=== PATIENT | female | born 1995 | race Caucasian/White ===

== ENCOUNTER 2017-07-09 16:01 | Emergency (ER) | payer OTHER ==
--- NOTE | 2017-07-09 17:21 | CT ---
CT HEAD WITHOUT IV CONTRAST 07/09/17 HISTORY: Patient slipped in bathtub last night and hit left frontal portion of the head. Patient complains of dizziness and nausea today. Tingling in extremities. COMPARISON: None available. FINDINGS: There is no evidence of a hemorrhage, acute infarction, mass effect or midline shift. Ventricular sy stem is normal in size, shape, and position. The visualized paranasal sinuses and mastoid air cells are clear. No calvarial fracture is seen. IMPRESSION: No acute intracranial abnormalities demonstrated. POS: VEE
== END 2017-07-09 17:32 | disposition home or self-care (01) ==
LOC: SCSER 16:01
DX: S00.03XA Contusion of scalp, initial encounter (principal); W01.10XA Fall on same level from slipping, tripping and stumbling with subsequent striking against unspecified object, initial encounter
CPT/HCPCS: 70450

== ENCOUNTER 2019-07-06 15:42 | Emergency (ER) | payer OTHER ==
[2019-07-06 17:19] LABS: #Basophils 0.1 thou/uL (0.0-0.2); #Eosinphils 0.1 thou/uL (0.0-0.7); #Lymphocytes 2.6 thou/uL (1.20-3.40); #Monocytes 0.6 thou/uL (0.11-0.59); #Neutrophils 3.3 thou/uL (1.40-6.50); %Basophils 1.1 % (0.0-1.0); %Eosinophils 1.6 % (0.0-10.0); %Lymphocytes 39.3 % (21.0-51.0); %Monocytes 8.3 % (0.0-10.0); %Neutrophils 49.7 % (42.0-75.0); Hemoglobin 14.4 g/dL (12.0-16.0); Mean Corpuscular Hemoglobin 30.7 pg (27.0-31.0); Mean Corpuscular Volume 90.3 fL (78.0-98.0); Platelet Count 341 thou/uL (130-400); RBC Distribution Width 11.6 % (11.5-14.5); Red Blood Cell (RBC) Count 4.67 mill/uL (4.20-5.40); White Blood Cell (WBC) Count 6.7 thou/uL (4.8-10.8)
[2019-07-06 17:41] LABS: ALT (SGPT) 11 U/L (8-55); AST (SGOT) 16 U/L (5-34); Albumin 4.9 g/dL (3.5-5.0); Alkaline Phosphatase 58 U/L (40-110); Anion Gap 11 mmol/L (10-20); BUN (Urea Nitrogen) 14 mg/dL (7.0-18.7); Bilirubin, Total 1.6 mg/dL (0.2-1.2); Calc. Creatinine Clearance 0 mL/min (70-130); Calcium 9.9 mg/dL (7.8-10.44); Carbon Dioxide 26 mmol/L (22-29); Chloride 103 mmol/L (98-107); Estimated GFR-MDRD 87; Globulin 2.8 g/dL (2.4-3.5); Glucose 69 mg/dL (70-105); Potassium 3.2 mmol/L (3.5-5.1); Protein, Total 7.7 g/dL (6.0-8.3); Sodium 137 mmol/L (136-145)
[2019-07-06 17:49] LABS: Acetaminophen Less than 6.0 mcg/mL (10.0-30.0); Alcohol Less than 10 mg/dL (Less than 10); CK (CPK) 64 U/L (29-168); Salicylate Less than 8.0 mg/dL (15.0-30.0)
[2019-07-06 18:20] LABS: Bilirubin Negative (Negative); Blood, Urine Negative (Negative); Clarity Clear (Clear); Glucose, Urine (Dipstick) Normal (Negative); Leukocyte Negative Leu/uL (Negative); Nitrite Negative (Negative); Protein, Urine (Dipstick) Negative (Neg-Trace)
[2019-07-06 18:24] LABS: Pregnancy Test - Urine (BHCG) Negative (Negative); Pregu Control Background? CLEAR/WHITE (CLR/WHITE); Pregu Control Bar Appear? YES (CONTROL BAR); Specific Gravity 1.008 (1.002-1.036)
[2019-07-06 18:32] LABS: Medtox Reader # READER 4
[2019-07-06 18:33] LABS: Amphetamine Detected (NotDetected); Barbiturates Screen Not Detected (NotDetected); Benzodiazepine Screen Detected (NotDetected); Cocaine Metabolite Screen Detected (NotDetected); Medtox Control Line Valid? VALID (VALID); Methadone Not Detected (NotDetected); Methamphetamine Detected (NotDetected); Opiate Screen Not Detected (NotDetected); Oxycodone Screen Not Detected (NotDetected); Phencyclidine (PCP) Not Detected (NotDetected); THC/Cannabinoid Screen Detected (NotDetected); Tricyclic Screen Not Detected (NotDetected)
--- NOTE | 2019-07-10 02:34 | EKG ---
Test Reason : Blood Pressure : / mmHG Vent. Rate : 088 BPM Atrial Rate : 088 BPM P-R Int : 124 ms QRS Dur : 084 ms QT Int : 350 ms P-R-T Axes : 070 043 014 degrees QTc Int : 423 ms Normal sinus rhythm with sinus arrhythmia Possible Left atrial enlargement Borderline ECG Confirmed by GALE DAVILA, RYAN Beth ([id number]), deputy editor in chief JAMEY LANDEROS ([id number]) on 07/10/2019 2:34:05 AM Referred By: Confirmed By:RYAN BEASLEY MD
== END 2019-07-06 19:30 | disposition home or self-care (01) ==
LOC: ERS 15:42
DX: F12.10 Cannabis abuse, uncomplicated (principal); F14.10 Cocaine abuse, uncomplicated; F15.10 Other stimulant abuse, uncomplicated; F41.9 Anxiety disorder, unspecified; F32.9 Major depressive disorder, single episode, unspecified; Z79.899 Other long term (current) drug therapy
CPT/HCPCS: 36415; 80053; 80306; 80307; 81003; 81025; 82550; 84443; 85025; 93005

== ENCOUNTER 2019-07-15 16:19 | Emergency (ER) | payer OTHER ==
[2019-07-15 16:49] LABS: Bilirubin Negative (Negative); Blood, Urine Negative (Negative); Clarity Clear (Clear); Glucose, Urine (Dipstick) Normal (Negative); Leukocyte Negative Leu/uL (Negative); Nitrite Negative (Negative); Protein, Urine (Dipstick) Negative (Neg-Trace); Urobilinogen Normal mg/dL (Less than 2)
[2019-07-15 16:52] LABS: Pregnancy Test - Urine (BHCG) Negative (Negative); Pregu Control Background? CLEAR/WHITE (CLR/WHITE); Pregu Control Bar Appear? YES (CONTROL BAR); Specific Gravity 1.004 (1.002-1.036)
[2019-07-15 18:05] LABS: #Basophils 0.1 thou/uL (0.0-0.2); #Eosinphils 0.1 thou/uL (0.0-0.7); #Lymphocytes 2.2 thou/uL (1.20-3.40); #Monocytes 0.4 thou/uL (0.11-0.59); #Neutrophils 3.5 thou/uL (1.40-6.50); %Basophils 1.5 % (0.0-1.0); %Eosinophils 1.6 % (0.0-10.0); %Lymphocytes 34.8 % (21.0-51.0); %Monocytes 6.9 % (0.0-10.0); %Neutrophils 55.2 % (42.0-75.0); Hemoglobin 13.2 g/dL (12.0-16.0); Mean Corpuscular HGB CONC 33.9 g/dL (32.0-36.0); Mean Corpuscular Hemoglobin 30.8 pg (27.0-31.0); Mean Corpuscular Volume 90.8 fL (78.0-98.0); Mean Platelet Volume 8.2 fL (7.4-10.4); Platelet Count 277 thou/uL (130-400); RBC Distribution Width 11.3 % (11.5-14.5); Red Blood Cell (RBC) Count 4.27 mill/uL (4.20-5.40); White Blood Cell (WBC) Count 6.3 thou/uL (4.8-10.8)
[2019-07-15 18:11] LABS: PTT 25.9 SEC (22.9-36.1); Prothrombin Time 13.1 SEC (12.0-14.7)
--- NOTE | 2019-07-15 18:19 | CT ---
CT ABDOMEN WITH CONTRAST CT PELVIS WITH CONTRAST: DATE: 07/15/2019 HISTORY: 23-year-old female with abdominal pain and bloody stools. COMPARISON: None available TECHNIQUE: IV injection of iodinated contrast media: administered. Oral contrast media:Not administered. FINDINGS: Lack of visceral fat, typical for this age group, makes it difficult to evaluate pancreas and bowel. No pancreatic ductal dilation. Transverse colon is very redundant, extending inferiorly to the pelvic inlet. Moderate to large amount of colonic stool. No pneumoperitoneum. No moderate or large am ounts of free fluid in the pelvic cavity. Abdominal aorta, appendix, kidneys, adrenals, liver, urinary bladder, and spleen, are normal. Lung ba ses are clear. IMPRESSION: 1) no definite acute findings. 2) redundant transverse colon. 3) moderate to large volume of colonic stool.
[2019-07-15 18:25] LABS: ALT (SGPT) 11 U/L (8-55); AST (SGOT) 17 U/L (5-34); Albumin 4.5 g/dL (3.5-5.0); Alkaline Phosphatase 48 U/L (40-110); Anion Gap 12 mmol/L (10-20); BUN (Urea Nitrogen) 9 mg/dL (7.0-18.7); Bilirubin, Total 0.6 mg/dL (0.2-1.2); Calc. Creatinine Clearance 0 mL/min (70-130); Calcium 9.2 mg/dL (7.8-10.44); Carbon Dioxide 25 mmol/L (22-29); Chloride 104 mmol/L (98-107); Estimated GFR-MDRD Greater than 90; Globulin 2.4 g/dL (2.4-3.5); Glucose 84 mg/dL (70-105); Protein, Total 6.9 g/dL (6.0-8.3); Sodium 137 mmol/L (136-145)
== END 2019-07-15 19:09 | disposition home or self-care (01) ==
LOC: ERS 16:19
DX: K59.00 Constipation, unspecified (principal); F41.9 Anxiety disorder, unspecified; F32.9 Major depressive disorder, single episode, unspecified; Z79.899 Other long term (current) drug therapy
CPT/HCPCS: 74177; 80053; 81003; 81025; 82274; 85025; 85610; 85730; 86850; 86900; 86901

== ENCOUNTER → 2019-11-18 | Day surgery (SDC) | payer OTHER ==
--- NOTE | 2019-11-18 14:10 | ULT ---
LIMITED BILATERAL BREAST ULTRASOUND: Date: 11/18/2019 PROVIDED CLINICAL HISTORY: Bilateral breast masses, one of which was previously biopsied and shown to represent fibroadenoma. FINDINGS: Comparison images are reportedly not available. RIGHT: At the 9 o'clock position of the right breast is a 4.1 x 2.8 x 1.3 cm circumscribed, wider than tall, gently lobulated hypoechoic mass without posterior shadowing. Immediately adjacent to this mass at 9 o'clock is a 1.3 cm hypoechoic, wider than tall, smoothly tray inated mass without posterior shadowing. At the 3 o'clock position of the right breast is a circumscribed oval, hypoechoic mass measuring less than 1.0 cm, demonstrating smooth margins and no posterior shadowing. LEFT: At the 3 o'clock position of the left breast is a 1.4 cm circumscribed, wider than tall, hypoechoic m ass demonstrating smooth margins and no posterior shadowing. IMPRESSION: Bilateral circumscribed hypoechoic masses compatible with fibroadenomas. The patient reports that one of these is symptomatic. Surgical consultation is recommended. POS: OFF
== END ==
LOC: BICULT 12:30
PROVIDERS: ATTEND Family Medicine
DX: D24.9 Benign neoplasm of unspecified breast (principal); N63.10 Unspecified lump in the right breast, unspecified quadrant; N63.20 Unspecified lump in the left breast, unspecified quadrant

== ENCOUNTER 2019-12-05 08:08 | Day surgery (SDC) | payer OTHER ==
--- NOTE | 2019-12-02 10:00 | HP ---
HISTORY OF PRESENT ILLNESS: A 23-year-old female with bilateral fibroadenomas, lateral right and left breast, right breast larger. She has had these for 3 years. Recent ultrasound suggests that they are benign, but the right one has become bothersome to her and she wants it to be removed. The plan is to remove the right lateral breast mass through a periareolar lateral incision outpatient. She understands risks, benefits, and consents. FAMILY HISTORY: Negative for breast cancer. 0, para 0. She is a [employer] major graduating in August 2020. ALLERGIES: NONE. TOBACCO: None. ALCOHOL: Rarely. MEDICATIONS: None. PAST SURGICAL HISTORY: Noncontributory. PAST MEDICAL HISTORY: Noncontributory. PHYSICAL EXAMINATION: VITAL SIGNS: Weight 168 pounds, height 72 inches, blood pressure 115/76, heart rate 68, temperature 98.2 degrees. HEAD, EARS, EYES, NOSE, AND THROAT: Unremarkable. LUNGS: Clear to auscultation. CARDIAC: Regular rhythm without murmur or gallop. ABDOMEN: Soft and nontender. EXTREMITIES: Unremarkable. Axilla without masses. BREASTS: Right lateral breast mass 3.5 to 4 cm mass, lateral 9 o'clock radian, 2 to 3 cm from the areolar border. Left breast mass 3 cm mobile, 9 o'clock radian, 3 to 4 cm from the areolar border. ASSESSMENT: Painful right breast mass. The other mass has been stable. PLAN: Excisional biopsy. She understands risks and benefits. Job ID: [id number]
[2019-12-02 12:42] VITALS: BMI 22.1
[2019-12-05] MEDS ORDERED: Ketorolac Tromethamine 30 MG/ML VIAL ONE ×2 (08:35→11:21)
[2019-12-05] MEDS ORDERED: Acetaminophen 500 MG TAB ONE (08:35)
[2019-12-05] MEDS ORDERED: Scopolamine 1.5 mg/72 hour Patch ONE (08:35)
[2019-12-05 09:20] LABS: BHCG - Serum Negative (NEGATIVE); Pregs Control Background? CLEAR/WHITE (CLR/WHITE); Pregs Control Bar Appear? YES (CONTROL BAR)
[2019-12-05] MEDS ORDERED: Lidocaine 1% w/Epinephrine 1:100K 20 ML VIAL ONE (10:21)
[2019-12-05] MEDS ORDERED: Bupivacaine 0.25% HCL 30 ML VIAL ONE (10:21)
[2019-12-05] MEDS ORDERED: Lidocaine 1% PF 5 ML VIAL ONE (11:21)
[2019-12-05] MEDS ORDERED: Ondansetron PF 4 MG/2 ML Vial ONE (11:21)
[2019-12-05] MEDS ORDERED: Dexamethasone 20 MG/5 ML VIAL ONE (11:21)
[2019-12-05] MEDS ORDERED: PROPOFOL 200 MG/20 ML VIAL ONE (11:21)
[2019-12-05] MEDS ORDERED: Midazolam HCl 2 mg/2 ml Vial ONE (12:40)
[2019-12-05] MEDS ORDERED: Fentanyl 100 MCG/2 ML VIAL ONE (12:40)
[2019-12-05] MEDS ORDERED: HYDROmorphone 2 MG/ML VIAL ONE (12:41)
--- NOTE | 2019-12-05 14:06 | OP ---
DATE OF PROCEDURE: 12/05/2019 PREOPERATIVE DIAGNOSES: 1. Painful right lateral breast mass. 2. Probable fibroadenoma. POSTOPERATIVE DIAGNOSES: 1. Painful right lateral breast mass. 2. Probable fibroadenoma. PROCEDURE PERFORMED: Excisional biopsy of right breast mass, lateral, 9 o'clock Radian. ANESTHESIA: General, local with 0.5% Marcaine 30 mL mixed with 1% Xylocaine with epinephrine 20 mL. DESCRIPTION OF PROCEDURE: The patient was taken to the operating room where under general anesthesia, right breast was prepared with ChloraPrep and draped in routine fashion local anesthetic was infiltrated in the skin and subcutaneous tissue about the operative site. Right lateral periareolar skin incision was made, carried down to skin and subcutaneous tissue, underlying breast mass excised, submitted to Pathology. Hemostasis was gained with cautery. Subcutaneous tissue was approximated with 3-0 Monocryl, skin with subdermal 4-0 Monocryl, and Remlap glue applied after local anesthetic infiltrated in the biopsy cavity for postoperative pain control. Job ID: [id number]
== END 2019-12-05 14:55 | disposition home or self-care (01) ==
LOC: SDC 08:08
PROVIDERS: ATTEND Specialist
PROC: 0HBT0ZX Excision of Right Breast, Open Approach, Diagnostic (ICD-10-PCS; principal; 2019-12-05)
DX: D24.1 Benign neoplasm of right breast (principal)
CPT/HCPCS: 84703; 88305; J1100; J1170; J1885; J2001; J2250; J2405; J2704; J3010; S0020

== ENCOUNTER 2021-02-28 23:45 | Inpatient (IN) | payer OTHER ==
[2021-03-01] MEDS ORDERED: Ondansetron PF 4 MG/2 ML Vial ONE (00:20)
[2021-03-01 00:33] LABS: BHCG - Serum Negative (NEGATIVE); Pregs Control Background? CLEAR/WHITE (CLR/WHITE); Pregs Control Bar Appear? YES (CONTROL BAR)
[2021-03-01 00:37] LABS: Hemoglobin 14.7 g/dL (12.0-16.0); Mean Corpuscular HGB CONC 34.7 g/dL (32.0-36.0); Mean Corpuscular Hemoglobin 31.1 pg (27.0-31.0); Mean Corpuscular Volume 89.7 fL (78.0-98.0); Mean Platelet Volume 8.2 fL (7.4-10.4); Platelet Count 294 thou/uL (130-400); RBC Distribution Width 11.3 % (11.5-14.5); Red Blood Cell (RBC) Count 4.72 mill/uL (4.20-5.40); White Blood Cell (WBC) Count 14.4 thou/uL (4.8-10.8)
[2021-03-01 00:39] LABS: ALT (SGPT) 15 U/L (8-55); AST (SGOT) 16 U/L (5-34); Albumin 4.6 g/dL (3.5-5.0); Alkaline Phosphatase 68 U/L (40-110); Anion Gap 20 mmol/L (10-20); BUN (Urea Nitrogen) 7 mg/dL (7.0-18.7); Bilirubin, Total 0.7 mg/dL (0.2-1.2); Calc. Creatinine Clearance 0 mL/min (70-130); Calcium 9.5 mg/dL (7.8-10.44); Carbon Dioxide 15 mmol/L (22-29); Chloride 106 mmol/L (98-107); Globulin 2.8 g/dL (2.4-3.5); Glucose 161 mg/dL (70-105); Lipase 14 U/L (8-78); Potassium 3.6 mmol/L (3.5-5.1); Protein, Total 7.4 g/dL (6.0-8.3); Sodium 137 mmol/L (136-145)
[2021-03-01 00:56] LABS: Band 19 % (5-11); Lymphocytes 8 % (21-51); MDiff Complete? YES; Monocytes 1 % (0-10); Neutrophil 72 % (42-75)
[2021-03-01] MEDS ORDERED: Morphine 4 MG/ML VIAL ONE (01:37)
[2021-03-01] MEDS ORDERED: metroNIDAZOLE 500 MG/100 ML BAG ONE (01:37)
[2021-03-01 02:55] VITALS: BMI 24.9
[2021-03-01] MEDS ORDERED: diphenhydrAMINE 50 MG CAP PO SCH (03:00)
[2021-03-01] MEDS: Sodium Chloride 0.9% 1,000 ML IV SCH ×2 (03:16→12:10)
[2021-03-01] MEDS ORDERED: metroNIDAZOLE 500 MG in Premix Bag 1 BAG IVPB SCH (04:00)
[2021-03-01 04:12] LABS: SARS-CoV-2 NAA Rapid Test Not Detected (NotDetected)
[2021-03-01] MEDS: Morphine 4 MG/ML VIAL SLOW IVP PRN ×5 (04:30→22:13)
[2021-03-01 05:24] LABS: #Lymphocytes 0.7 thou/uL (1.20-3.40); #Monocytes 0.2 thou/uL (0.11-0.59); #Neutrophils 9.9 thou/uL (1.40-6.50); %Basophils 0.1 % (0.0-1.0); %Eosinophils 0.1 % (0.0-10.0); %Lymphocytes 6.8 % (21.0-51.0); %Monocytes 1.8 % (0.0-10.0); %Neutrophils 91.4 % (42.0-75.0); Hemoglobin 12.7 g/dL (12.0-16.0); Mean Corpuscular HGB CONC 34.2 g/dL (32.0-36.0); Mean Corpuscular Hemoglobin 30.8 pg (27.0-31.0); Mean Corpuscular Volume 90.1 fL (78.0-98.0); Mean Platelet Volume 8.7 fL (7.4-10.4); Platelet Count 226 thou/uL (130-400); RBC Distribution Width 11.2 % (11.5-14.5); Red Blood Cell (RBC) Count 4.12 mill/uL (4.20-5.40); White Blood Cell (WBC) Count 10.9 thou/uL (4.8-10.8)
[2021-03-01 05:40] LABS: Anion Gap 14 mmol/L (10-20); BUN (Urea Nitrogen) 6 mg/dL (7.0-18.7); Calc. Creatinine Clearance 149 mL/min (70-130); Calcium 8.2 mg/dL (7.8-10.44); Carbon Dioxide 17 mmol/L (22-29); Chloride 110 mmol/L (98-107); Glucose 136 mg/dL (70-105); Potassium 3.7 mmol/L (3.5-5.1); Sodium 137 mmol/L (136-145)
[2021-03-01] MEDS: Thiamine HCl 200 MG/2 ML VIAL SLOW IVP SCH (06:09)
[2021-03-01] MEDS: Famotidine 20 MG TAB PO SCH ×2 (08:02→20:15)
[2021-03-01] MEDS: Ondansetron PF 4 MG/2 ML Vial IVP PRN ×3 (08:02→20:15)
[2021-03-01] MEDS: Folic Acid 1 MG TAB PO SCH (08:03)
[2021-03-01] MEDS: metroNIDAZOLE 500 MG in Premix Bag 1 BAG IVPB SCH ×2 (09:28→17:22)
[2021-03-01] MEDS ORDERED: Iopamidol-370 76% 500 ML 1 ML ONE (09:54)
[2021-03-01] MEDS: HYDROcodone/Acetaminophen 5/325 mg Tablet PO PRN ×3 (11:00→20:16)
[2021-03-02] MEDS: HYDROcodone/Acetaminophen 5/325 mg Tablet PO PRN ×2 (00:44→06:05)
[2021-03-02] MEDS: metroNIDAZOLE 500 MG in Premix Bag 1 BAG IVPB SCH ×3 (02:18→17:15)
[2021-03-02] MEDS: Morphine 4 MG/ML VIAL SLOW IVP PRN ×3 (02:19→14:30)
[2021-03-02] MEDS: Ondansetron PF 4 MG/2 ML Vial IVP PRN ×3 (02:19→17:15)
[2021-03-02] MEDS: Sodium Chloride 0.9% 1,000 ML IV SCH ×2 (02:24→08:55)
[2021-03-02 05:52] LABS: #Basophils 0.1 thou/uL (0.0-0.2); #Eosinphils 0.1 thou/uL (0.0-0.7); #Lymphocytes 2.9 thou/uL (1.20-3.40); #Neutrophils 3.9 thou/uL (1.40-6.50); %Basophils 0.9 % (0.0-1.0); %Eosinophils 1.5 % (0.0-10.0); %Lymphocytes 36.6 % (21.0-51.0); %Monocytes 12.2 % (0.0-10.0); %Neutrophils 48.8 % (42.0-75.0); Mean Corpuscular HGB CONC 33.6 g/dL (32.0-36.0); Mean Corpuscular Hemoglobin 30.4 pg (27.0-31.0); Mean Corpuscular Volume 90.4 fL (78.0-98.0); Mean Platelet Volume 8.5 fL (7.4-10.4); Platelet Count 231 thou/uL (130-400); RBC Distribution Width 11.4 % (11.5-14.5); Red Blood Cell (RBC) Count 3.95 mill/uL (4.20-5.40); White Blood Cell (WBC) Count 7.9 thou/uL (4.8-10.8)
[2021-03-02] MEDS: Thiamine HCl 200 MG/2 ML VIAL SLOW IVP SCH (06:04)
[2021-03-02 06:14] LABS: Anion Gap 10 mmol/L (10-20); BUN (Urea Nitrogen) Less than 4 mg/dL (7.0-18.7); Calc. Creatinine Clearance 144 mL/min (70-130); Calcium 7.9 mg/dL (7.8-10.44); Carbon Dioxide 20 mmol/L (22-29); Chloride 109 mmol/L (98-107); Glucose 90 mg/dL (70-105); Potassium 3.2 mmol/L (3.5-5.1); Sodium 136 mmol/L (136-145)
[2021-03-02] MEDS ORDERED: Potassium Chloride 20 MEQ in Premix Bag 1 BAG IVPB SCH (08:45)
[2021-03-02] MEDS: Famotidine 20 MG TAB PO SCH ×2 (08:54→20:57)
[2021-03-02] MEDS: Folic Acid 1 MG TAB PO SCH (08:55)
[2021-03-02] MEDS: Escitalopram Oxalate 20 mg Tablet PO SCH (08:55)
[2021-03-02] MEDS ORDERED: Sodium Chloride 0.65% Nasal 44 ML BOT EA NARE PRN (10:32)
[2021-03-02] MEDS ORDERED: Cepastat Lozenges 1 LOZ PO PRN (10:32)
[2021-03-02] MEDS ORDERED: GUAIFENESIN SF SOLN 200 MG/10 ML UDCUP PO PRN (10:32)
[2021-03-02] MEDS ORDERED: Calcium Carbonate 500 MG ChewTAB PO PRN (10:32)
[2021-03-02] MEDS ORDERED: Zolpidem Tartrate 5 MG TAB PO PRN (10:32)
[2021-03-02] MEDS ORDERED: hydrALAZINE 20 MG/ML VIAL SLOW IVP PRN (10:32)
[2021-03-02] MEDS ORDERED: Loratadine 10 MG TAB PO PRN (10:32)
[2021-03-02] MEDS: Promethazine HCl 25 MG in Sodium Chloride 0.9% 50 ML IVPB PRN ×2 (12:35→20:56)
[2021-03-02] MEDS: D5 0.9% NS w/ 20 mEq KCl 1,000 ML IV SCH (14:26)
[2021-03-02] MEDS ORDERED: Hyoscyamine Sulfate SL 0.125 mg Tablet SL PRN (15:58)
[2021-03-02] MEDS: Morphine 2 MG/ML VIAL SLOW IVP PRN (19:18)
[2021-03-03] MEDS: Ondansetron PF 4 MG/2 ML Vial IVP PRN ×3 (01:05→19:23)
[2021-03-03] MEDS: metroNIDAZOLE 500 MG in Premix Bag 1 BAG IVPB SCH ×3 (01:05→18:18)
[2021-03-03] MEDS: Morphine 2 MG/ML VIAL SLOW IVP PRN ×3 (01:05→21:12)
[2021-03-03] MEDS: D5 0.9% NS w/ 20 mEq KCl 1,000 ML IV SCH ×3 (01:08→15:10)
[2021-03-03 05:38] LABS: #Basophils 0.1 thou/uL (0.0-0.2); #Eosinphils 0.1 thou/uL (0.0-0.7); #Lymphocytes 3.3 thou/uL (1.20-3.40); #Monocytes 0.9 thou/uL (0.11-0.59); #Neutrophils 4.2 thou/uL (1.40-6.50); %Basophils 0.7 % (0.0-1.0); %Lymphocytes 38.4 % (21.0-51.0); %Monocytes 10.9 % (0.0-10.0); Mean Corpuscular HGB CONC 34.2 g/dL (32.0-36.0); Mean Corpuscular Volume 90.5 fL (78.0-98.0); Mean Platelet Volume 8.5 fL (7.4-10.4); Platelet Count 268 thou/uL (130-400); RBC Distribution Width 11.3 % (11.5-14.5); Red Blood Cell (RBC) Count 3.87 mill/uL (4.20-5.40); White Blood Cell (WBC) Count 8.5 thou/uL (4.8-10.8)
[2021-03-03 05:58] LABS: Phosphorus 3.1 mg/dL (2.3-4.7)
[2021-03-03] MEDS: Thiamine HCl 200 MG/2 ML VIAL SLOW IVP SCH (05:58)
[2021-03-03 05:59] LABS: Anion Gap 10 mmol/L (10-20); BUN (Urea Nitrogen) Less than 4 mg/dL (7.0-18.7); Calc. Creatinine Clearance 139 mL/min (70-130); Calcium 8.4 mg/dL (7.8-10.44); Carbon Dioxide 23 mmol/L (22-29); Chloride 111 mmol/L (98-107); Glucose 110 mg/dL (70-105); Magnesium 1.5 mg/dL (1.6-2.6); Potassium 3.2 mmol/L (3.5-5.1); Sodium 141 mmol/L (136-145)
[2021-03-03] MEDS ORDERED: Magnesium 2 GM/50 ML 2 GM in Premix Bag 1 BAG IVPB SCH (09:00)
[2021-03-03] MEDS ORDERED: Potassium Chloride 20 MEQ TAB PO SCH (09:00)
[2021-03-03] MEDS: Escitalopram Oxalate 20 mg Tablet PO SCH (09:30)
[2021-03-03] MEDS: Famotidine 20 MG TAB PO SCH ×2 (09:30→19:23)
[2021-03-03] MEDS: Folic Acid 1 MG TAB PO SCH (09:31)
[2021-03-03] MEDS: Acetaminophen 325 MG TAB PO PRN (13:35)
[2021-03-03] MEDS ORDERED: Fioricet 325/50/40 mg Tablet PO PRN (14:56)
[2021-03-03] MEDS: Promethazine HCl 25 MG in Sodium Chloride 0.9% 50 ML IVPB PRN (21:19)
[2021-03-04] MEDS: D5 0.9% NS w/ 20 mEq KCl 1,000 ML IV SCH ×3 (00:11→18:21)
[2021-03-04] MEDS: metroNIDAZOLE 500 MG in Premix Bag 1 BAG IVPB SCH ×3 (01:23→17:37)
[2021-03-04] MEDS: Morphine 2 MG/ML VIAL SLOW IVP PRN ×2 (04:05→16:17)
[2021-03-04] MEDS: Ondansetron PF 4 MG/2 ML Vial IVP PRN ×2 (04:05→12:10)
[2021-03-04] MEDS: Thiamine HCl 200 MG/2 ML VIAL SLOW IVP SCH (05:31)
[2021-03-04 05:40] LABS: #Basophils 0.1 thou/uL (0.0-0.2); #Eosinphils 0.1 thou/uL (0.0-0.7); #Lymphocytes 2.8 thou/uL (1.20-3.40); #Monocytes 0.6 thou/uL (0.11-0.59); #Neutrophils 2.3 thou/uL (1.40-6.50); %Basophils 1.1 % (0.0-1.0); %Eosinophils 1.8 % (0.0-10.0); %Lymphocytes 47.5 % (21.0-51.0); %Monocytes 10.3 % (0.0-10.0); %Neutrophils 39.3 % (42.0-75.0); Hemoglobin 11.6 g/dL (12.0-16.0); Mean Corpuscular HGB CONC 34.1 g/dL (32.0-36.0); Mean Corpuscular Hemoglobin 30.8 pg (27.0-31.0); Mean Corpuscular Volume 90.5 fL (78.0-98.0); Mean Platelet Volume 8.3 fL (7.4-10.4); Platelet Count 261 thou/uL (130-400); RBC Distribution Width 11.4 % (11.5-14.5); Red Blood Cell (RBC) Count 3.76 mill/uL (4.20-5.40); White Blood Cell (WBC) Count 5.8 thou/uL (4.8-10.8)
[2021-03-04 06:04] LABS: Anion Gap 10 mmol/L (10-20); BUN (Urea Nitrogen) Less than 4 mg/dL (7.0-18.7); Calc. Creatinine Clearance 135 mL/min (70-130); Calcium 8.2 mg/dL (7.8-10.44); Carbon Dioxide 22 mmol/L (22-29); Chloride 112 mmol/L (98-107); Glucose 94 mg/dL (70-105); Magnesium 1.8 mg/dL (1.6-2.6); Potassium 4.4 mmol/L (3.5-5.1); Sodium 140 mmol/L (136-145)
[2021-03-04] MEDS: Folic Acid 1 MG TAB PO SCH (09:10)
[2021-03-04] MEDS: Escitalopram Oxalate 20 mg Tablet PO SCH (09:10)
[2021-03-04] MEDS: Famotidine 20 MG TAB PO SCH ×2 (09:18→20:47)
[2021-03-04] MEDS: Promethazine HCl 25 MG in Sodium Chloride 0.9% 50 ML IVPB PRN ×2 (16:17→22:03)
[2021-03-04] MEDS: Dicyclomine 10 MG CAP PO SCH ×2 (17:36→20:47)
[2021-03-05] MEDS: metroNIDAZOLE 500 MG in Premix Bag 1 BAG IVPB SCH ×2 (02:14→09:42)
[2021-03-05] MEDS: D5 0.9% NS w/ 20 mEq KCl 1,000 ML IV SCH (02:18)
[2021-03-05] MEDS: Promethazine HCl 25 MG in Sodium Chloride 0.9% 50 ML IVPB PRN (05:11)
[2021-03-05] MEDS: Thiamine HCl 200 MG/2 ML VIAL SLOW IVP SCH (05:12)
[2021-03-05 05:27] LABS: #Eosinphils 0.1 thou/uL (0.0-0.7); #Lymphocytes 3.1 thou/uL (1.20-3.40); #Monocytes 0.7 thou/uL (0.11-0.59); #Neutrophils 2.5 thou/uL (1.40-6.50); %Basophils 0.1 % (0.0-1.0); %Eosinophils 1.9 % (0.0-10.0); %Lymphocytes 48.8 % (21.0-51.0); %Monocytes 10.4 % (0.0-10.0); %Neutrophils 38.7 % (42.0-75.0); Mean Corpuscular HGB CONC 34.7 g/dL (32.0-36.0); Mean Corpuscular Volume 89.5 fL (78.0-98.0); Mean Platelet Volume 8.4 fL (7.4-10.4); Platelet Count 270 thou/uL (130-400); RBC Distribution Width 11.3 % (11.5-14.5); Red Blood Cell (RBC) Count 3.85 mill/uL (4.20-5.40); White Blood Cell (WBC) Count 6.3 thou/uL (4.8-10.8)
[2021-03-05 05:43] LABS: Anion Gap 10 mmol/L (10-20); BUN (Urea Nitrogen) Less than 4 mg/dL (7.0-18.7); Calc. Creatinine Clearance 157 mL/min (70-130); Calcium 8.1 mg/dL (7.8-10.44); Carbon Dioxide 22 mmol/L (22-29); Chloride 110 mmol/L (98-107); Glucose 89 mg/dL (70-105); Potassium 3.4 mmol/L (3.5-5.1); Sodium 139 mmol/L (136-145)
[2021-03-05] MEDS ORDERED: Potassium Chloride 20 MEQ TAB PO SCH (09:00)
[2021-03-05] MEDS: Famotidine 20 MG TAB PO SCH (09:42)
[2021-03-05] MEDS: Folic Acid 1 MG TAB PO SCH (09:42)
[2021-03-05] MEDS: Escitalopram Oxalate 20 mg Tablet PO SCH (09:42)
[2021-03-05] MEDS: Dicyclomine 10 MG CAP PO SCH ×2 (09:42→12:26)
[2021-03-05] MEDS: Acetaminophen 325 MG TAB PO PRN (10:50)
[2021-03-05] MEDS: Ondansetron PF 4 MG/2 ML Vial IVP PRN (12:28)
[2021-03-05 12:30] VITALS: BP 120/80; TEMP 98.4
[2021-03-08 06:14] LABS: Norovirus GI Negative (Negative); Norovirus GII Negative (Negative)
== END 2021-03-05 13:43 | disposition home or self-care (01) | DRG 392 ==
LOC: ERS 23:45 → SURG A 03-01 01:44 → OBSVTOIN 03-02 08:42
PROVIDERS: ADMIT Internal Medicine; ATTEND Internal Medicine
DX: K52.9 Noninfective gastroenteritis and colitis, unspecified (principal); E87.2 Acidosis; Z20.822 Contact with and (suspected) exposure to COVID-19; F12.10 Cannabis abuse, uncomplicated; F10.10 Alcohol abuse, uncomplicated; E86.0 Dehydration; F41.9 Anxiety disorder, unspecified; F32.9 Major depressive disorder, single episode, unspecified; E87.6 Hypokalemia; E83.42 Hypomagnesemia; R51.9 Headache, unspecified; Z79.899 Other long term (current) drug therapy; Z82.49 Family history of ischemic heart disease and other diseases of the circulatory system
CPT/HCPCS: 36415; 74177; 80048; 80053; 83605; 83630; 83690; 83735; 84100; 84703; 85025; 86753; 87015; 87040; 87045; 87046; 87177; 87206; 87324; 87328; 87329; 87337; 87427; 87449; 87798; 96365; 96366; 96367; 96372; 96375; 96376; G0378; J0500; J0744; J2270; J2405; J2550; J3411; J3475; J3480; Q9967; U0002; U0005